=== PATIENT | female | born 1970 ===

== ENCOUNTER → 2022-07-23 | Outpatient (CLI) | payer OTHER | LOC: LAB SHORT 14:48 → LAB 14:48 | DX: E53.8 Deficiency of other specified B group vitamins (principal) | CPT/HCPCS: 82607; 82746 ==

== ENCOUNTER → 2023-04-19 | Outpatient (CLI) | payer OTHER ==
[2023-04-19 20:19] LABS: Albumin, Blood 3.9 g/dL (3.4-5.0); Albumin/Globulin Ratio 1.4 (0.8-1.8); Bilirubin, Total 0.7 mg/dL (0.1-1.0); Bun/Creatinine Ratio 17.8 (12.0-20.0); Calcium, Blood 8.9 mg/dL (8.5-10.1); Creatinine, Blood 0.79 mg/dL (0.40-1.00); Globulin, Blood 2.8 g/dL (2.2-4.0); Phosphorus, Blood 2.8 mg/dL (2.5-4.9); Potassium, Blood 4.1 mmol/L (3.5-5.5); Total Protein, Blood 6.7 g/dL (6.4-8.2)
[2023-04-21 08:15] LABS: FERRITIN 24 ng/mL (15-150)
[2023-04-21 09:15] LABS: IRON BIND.CAP.(TIBC) 362 ug/dL (250-450); IRON SATURATION 27 % (15-55); IRON, SERUM 97 ug/dL (27-159); UIBC 265 ug/dL (131-425)
== END | disposition home or self-care (01) ==
LOC: LAB 19:06 → LAB SHORT 19:06
PROVIDERS: Internal Medicine Hematology & Oncology
DX: D50.9 Iron deficiency anemia, unspecified (principal)
CPT/HCPCS: 80053; 82728; 83540; 83550; 84100